=== PATIENT | male | born 1945 | race Caucasian/White ===

== ENCOUNTER 2018-02-22 08:51 | Emergency (ER) | payer MEDICARE, OTHER ==
[~2018-02-22 08:51] MED LIST: 1-ME1LIQ PO; FURO1TAB93 PO; LOSA100T PO; REST30CA PO
--- NOTE | 2018-02-22 09:09 | PD ---
HPI Chief Complaint: Code Blue Time Seen by Provider: 09:01 Travel History International Travel<30 days: No Contact w/Intl Traveler<30days: No History of Present Illness HPI 72yo M was brought in by EVAC in PEA arrest. Pt was sitting down and eating a cookie and then got up and sat back down and said he did not feel well and then passed out as per [facility]. Said girlfriend witnessed it. Pt was intubated in field and no food was seen in airway. Pt was in asystole and then vfib and defibrillated x2 and then in PEA arrest. Pt was down for at least 35 to 45 minutes with no ROSC prior to arrival. Pt was also given narcan, epinephrine x6 , sodium bicarb, calcium and glucose was 79. Pt was in PEA arrest on arrival and CPR was continued. Pt has history of kidney disease as well as on chronic pain medication. PFSH Past Medical History Cancer: No Cardiovascular Problems: No Diabetes: No Endocrine: No Genitourinary: No Hepatitis: No Hiatal Hernia: No Hypertension: Yes Immune Disorder: No Musculoskeletal: No Neurologic: No Psychiatric: No Respiratory: No Thyroid Disease: No Past Surgical History AICD: No Joint Replacement: No Oral Surgery: Yes (DENTAL EXTRACTION) Pacemaker: No Other Surgery: Yes Social History Alcohol Use: No Tobacco Use: No Substance Use: No Allergies-Medications (Allergen,Severity, Reaction): Coded Allergies: penicillin G (Unverified Allergy, Severe, 05/06/17) Reported Meds & Prescriptions Reported Meds & Active Scripts Active Reported Restoril 30 mg (Temazepam) 30 Mg Cap 1 Cap PO HS Amlodipine Besylate 10 mg (Amlodipine Besylate) 10 Mg Tab 1 Tab PO DAILY Losartan Potassium 100 MG (Losartan Potassium) 100 Mg Tab 100 Mg PO DAILY Lasix (Furosemide) 40 Mg Tab 40 Mg PO DAILY Review of Systems ROS Limitations: Unresponsive Physical Exam Narrative GENERAL: 72yo unresponsive. SKIN: Multiple skin excoriations. There is a growth in left leg. HEAD: Atraumatic. Normocephalic. EYES: Pupils fixed and unreactive at 4mm bilaterally. ENT: No nasal bleeding or discharge. Mucous membranes pink and moist. NECK: Cervical spine collar. CARDIOVASCULAR: PEA arrest. RESPIRATORY: Breath sounds equal bilaterally, intubated. GASTROINTESTINAL: Abdomen soft, nondistended. MUSCULOSKELETAL: No obvious deformities. No clubbing. No cyanosis. No edema. NEUROLOGICAL: Unresponsive. Data Data Orders Orders Ed Discharge Order (02/22/18 09:09) MDM Medical Decision Making Medical Screen Exam Complete: Yes Emergency Medical Condition: Yes Differential Diagnosis Massive HI vs. PE vs. overdose vs. hyperkalemia Narrative Course 72yo M with PEA arrest and has been down for at least 35-45 minutes. CPR was continued in the ED and after 3 epinephrines, calcium chloride here, pt still in PEA arrest. Time of call was called at 9am. Charge nurse to call medical lab specialist and primary care to sign certificate. Pt has no family here initially. Pt's girlfriend and her granddaughter came and I had a long discussion with them. I also spoke to patient's daughter who is out of state on the phone. Answered all questions. Procedures Procedure Narrative CPR was continued for PEA arrest. Patient was given total of epinephrine x3, calcium chloride and there was no return of spontaneous circulation. Pt remained in PEA arrest. Diagnosis Primary Impression: Cardiac arrest Disposition: 20 Condition: Torri Zamora DO Feb 22, 2018 09:09
== END 2018-02-22 10:24 | disposition expired ==
LOC: PHED 08:51
DX: I46.9 Cardiac arrest, cause unspecified (principal); I10 Essential (primary) hypertension; N28.9 Disorder of kidney and ureter, unspecified; G89.29 Other chronic pain; Z88.0 Allergy status to penicillin; Z79.899 Other long term (current) drug therapy
CPT/HCPCS: 92950; 94770